=== PATIENT | female | born 1995 | race Caucasian/White ===

== ENCOUNTER 2016-12-25 20:57 | Emergency (ER) | payer BC ==
[~2016-12-25] VITALS: Ht 162.6 cm; Wt 66.4 kg
[~2016-12-25 20:57] MED LIST: BCPILLS PO; EPP3/2 IM
[2016-12-25 21:00] VITALS: Ht 162.6 cm; Wt 66.4 kg
[2016-12-25] MEDS ORDERED: FAMOTIDINE 20MG/102 ML D5W IV STA (21:07)
[2016-12-25] MEDS ORDERED: METHYLPREDNISOLONE 125 MG VIAL IV STA (21:07)
[2016-12-25] MEDS ORDERED: SODIUM CHLORIDE 0.9% 1000ML 1,000 ML IV STA (21:07)
[2016-12-25] MEDS ORDERED: EPINEPHRINE ADULT AUTO-INJECT 0.3 MG SYR ONE (21:07)
[2016-12-25] MEDS ORDERED: DiphenhydrAMINE HCL 50 MG/ML VIAL IV STA (21:07)
[2016-12-25] MEDS ORDERED: EpINEphrine INJ 1MG/ML AMP 1 MG/ML AMP IM STA (21:13)
[2016-12-25 21:28] VITALS: O2SAT 98
[2016-12-26] MEDS ORDERED: PRED50TA PO (00:44)
[2016-12-26 00:52] VITALS: BP 131/71; PULSE 66; TEMP 37; O2SAT 99
--- NOTE | 2016-12-26 03:09 | EMERGENCY ROOM VISIT NOTE ---
History Report prepared by Anastasiaibanju: Nura Hylton Under the Supervision of: Dr. Tim Rajput M.D. 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 She also complains of chest tightness, swollen eyes and lips, and itchy feet. The patient notes that these symptoms started recently and she ate about an hour ago. She notes that the last time she had a reaction similar to this was 7 years ago. The patient is prescribed an EpiPen, but has never used one before so she presented to the ED for the shot. She denies throat swelling, LOC , headache, fevers, chills, diaphoresis, visual changes, neck pain, nausea, vomiting, back pain, melena, hematochezia, urinary symptoms, numbness, weakness , lymphadenopathy, rash, or other complaints. 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 A total of ten systems were reviewed and were otherwise negative. Past Medical & Surgical Medical Problems: (1) Influenza A (2) Knee pain (3) No Known Active Medical Problems Family History No pertinent family history Social History Smoking Status: Never Smoker Marital Status: single Housing Status: lives with roommate Occupation Status: student Current/Historical Medications Scheduled Control Pills ( Control Pills), 1 TAB PO DAILY Prednisone (Prednisone), 50 MG PO DAILY Scheduled PRN Epinephrine (Epipen), 0.3 MG IM UD PRN for ALLERGIC REACTION Allergies Uncoded Allergies: TREE NUTS (Allergy, Severe, ANAPHYLAXIS, 01/02/16) Physical Exam Vital Signs Date Time Temp Pulse Resp B/P Pulse Ox O2 Delivery O2 Flow Rate FiO2 12/26/16 00:52 37.0 66 20 131/71 99 12/26/16 00:51 66 20 131/71 99 Room Air 12/25/16 23:58 68 20 133/71 99 Room Air 12/25/16 23:53 64 19 98 12/25/16 23:48 67 21 98 12/25/16 23:43 63 19 98 12/25/16 23:38 66 17 98 12/25/16 23:33 61 15 98 12/25/16 23:28 78 16 99 12/25/16 23:23 66 27 98 12/25/16 23:18 71 24 98 12/25/16 23:13 67 19 99 12/25/16 23:08 71 18 98 12/25/16 22:58 82 23 130/69 98 12/25/16 22:53 95 22 97 12/25/16 22:48 68 22 100 12/25/16 22:43 79 17 99 12/25/16 22:38 70 20 99 12/25/16 22:33 84 16 97 12/25/16 22:29 70 14 123/73 99 Room Air 12/25/16 22:28 70 14 99 12/25/16 22:23 72 22 99 12/25/16 22:18 73 18 98 12/25/16 22:13 69 17 100 12/25/16 22:08 69 19 100 12/25/16 22:03 68 19 99 12/25/16 21:58 37.0 71 20 139/77 99 Room Air 12/25/16 21:57 71 20 98 12/25/16 21:52 72 19 100 12/25/16 21:47 71 21 98 12/25/16 21:42 74 16 98 12/25/16 21:37 83 19 98 12/25/16 21:32 80 16 98 12/25/16 21:30 37.0 77 20 147/87 99 Room Air 12/25/16 21:30 147/87 12/25/16 21:28 98 Room Air 12/25/16 21:27 79 16 97 12/25/16 21:26 98 Room Air 12/25/16 21:22 76 16 99 12/25/16 21:17 78 18 98 12/25/16 21:17 97 Room Air 12/25/16 21:00 37.0 108 20 152/76 97 Room Air Physical Exam GENERAL: Awake, alert, well-appearing, in no distress HENT: Facial erythema and edema. Hives on face, chest, and upper extremities. EYES: Normal conjunctiva. Sclera non-icteric. NECK: Supple. No nuchal rigidity. FROM. No JVD. RESPIRATORY: Clear to auscultation. CARDIAC: Borderline tachycardic, normal rhythm. Extremities warm and well perfused. Pulses equal. ABDOMEN: Soft, non-distended. No tenderness to palpation. No rebound or guarding. No masses. RECTAL: Deferred. MUSCULOSKELETAL: Chest examination reveals no tenderness. The back is symmetrical on inspection without obvious abnormality. There is no CVA tenderness to palpation. No joint edema. LOWER EXTREMITIES: Calves are equal size bilaterally and non-tender. No edema. No discoloration. NEURO: Normal sensorium. No sensory or motor deficits noted. SKIN: No rash or jaundice noted. Medical Decision & Procedures Medications Administered Medications (Trade) Dose Ordered Sig/Kendall Route Start Time Stop Time Status Last Admin Dose Admin Sodium Chloride (Nss 1000ml) 1,000 ml @ 999 mls/hr Q1H1M STAT IV 12/25/16 21:07 12/25/16 22:07 DC 12/25/16 21:21 999 MLS/HR Methylprednisolone Sodium Succinate (Solu-Medrol IV) 125 mg NOW STAT IV 12/25/16 21:07 12/25/16 21:08 DC 12/25/16 21:20 125 MG Diphenhydramine HCl (Benadryl Inj) 50 mg NOW STAT IV 12/25/16 21:07 12/25/16 21:08 DC 12/25/16 21:20 50 MG Famotidine (Pepcid 20mg/100 ml) 20 mg ONE STAT IV 12/25/16 21:07 12/25/16 21:08 DC 12/25/16 21:21 20 MG Epinephrine HCl (EpINEphrine INJ 1MG/ML AMP/VIAL) 0.3 mg NOW STAT IM 12/25/16 21:13 12/25/16 21:14 DC 12/25/16 21:23 0.3 MG Prednisone (PredniSONE TAB) 60 mg NOW STAT PO 12/25/16 23:15 12/25/16 23:16 DC 12/25/16 23:28 60 MG ED Course 2104: The patient was evaluated in room C11. A complete history and physical exam was performed. 2106: Ordered Epipen 0.3 mg .ROUTE, Famotidine 20 mg IV, Benadryl Inj 0 mg IV, Solu-Medrol IV 125 mg IV, NSS 1000 ml @ 999 mls/hr IV. 2112: Ordered Epinephrine 0.3 mg IM. 2133: At this time, I reevaluated the patient and she feels and looks better. 5: Ordered Prednisone 60 mg PO. 5: I reevaluated the patient. Discussed results and discharge instructions: She verbalized understanding and agreement. The patient is ready for discharge. Medical Decision Triage Nursing notes reviewed and agree them. The patient's history was concerning for possible allergic reaction. Differential diagnosis: Etiologies such as allergic reaction, anaphylaxis, urticaria, White-Mehul syndrome, toxic epidermal necrolysis, erythema multiforme, cellulitis, as well as others were entertained. Physical examination: As above. ER treatment provided: Continuous cardiac monitoring Benadryl 50 mg IV Pepcid 20 mg IV Solu-Medrol 125 mg IV On reassessment the patient felt significantly better Prednisone 60mg PO On reassessment the patient felt even better. Diagnostic interpretation by me: Cardiac monitoring: The patient was placed on continuous cardiac monitoring and observed. It revealed a normal sinus rhythm without ectopy or evidence of dysrhythmia. It appears the patient had an allergic reaction. The above treatment did well to reverse the symptoms. After prolonged monitoring and frequent reassessments the patient did very well and symptoms resolved. Patient was counseled to avoid all nuts. She will need close outpatient follow-up. She has an EpiPen at home. By the evaluation outlined above emergent etiologies such as airway compromise, White-Mehul syndrome, toxic epidermal necrolysis, erythema multiforme, cellulitis, as well as others were deemed relatively unlikely. The patient was informed about the findings as listed above. All questions were answered and she was pleased with the treatment. Return instructions were outlined and the patient was discharged in stable condition. Outpatient prescription management: prednisone Referral: The patient was referred back to her primary care physician for follow-up in 2- 3 days for a recheck of the current condition. The chart was completed utilizing [employer] Speech voice recognition software. Grammatical errors, random word insertions, pronoun errors, and incomplete sentences are an occasional side effect of this system due to software limitations, ambient noise, and hardware issues. Any formal questions or concerns about the content, text, or information contained within the body of this dictation should be directly addressed to the physician for clarification. Impression Primary Impression: Allergic reaction Scribe Attestation The scribe's documentation has been prepared under my direction and personally reviewed by me in its entirety. I confirm that the note above accurately reflects all work, treatment, procedures, and medical decision making performed by me. Departure Information Dispostion Home / Self-Care Prescriptions Prednisone (Prednisone) 50 Mg Tab 50 MG PO DAILY, #3 TAB Prov: Tim Rajput MD 12/26/16 Referrals No Doctor, Assigned (PCP) Forms HOME CARE DOCUMENTATION FORM, IMPORTANT VISIT INFORMATION Patient Instructions My [facility] Additional Instructions ALLERGIC REACTION INSTRUCTIONS: DO NOT drive, drink alcohol, operate machinery, or perform dangerous activities today. You were given medications in the ER that can affect your ability to safely function or operate a vehicle. Avoid all nuts. (Previously prescribed) Epi-Pen: Use one injection as instructed for severe allergic reactions associated with shortness of breath, difficulty breathing, or throat or tongue swelling. If you use this injection call 911 or proceed immediately to the nearest Emergency Room. (New prescriptions) Prednisone 50mg: Once daily until the prescription is finished. It is best to take this earlier in the day as some patients note occasional difficulty falling asleep when taken in the late evening. Diphenhydramine(Benadryl) 25mg: use 25 to 50 mg every six hours for swelling, itching, or hives. This medication is sedating and will cause drowsiness. Avoid alcohol, operating machinery or dangerous equipment, working on ladders or roofs, DRIVING, or situations where being under the influence may be dangerous. Zantac 75: Take two pills twice a day along with Benadryl as needed for swelling , itching, or hives. Most people know this for its affect on the stomach, but it also acts similar to, but less potent than Benadryl for allergic reactions. Both the Benadryl and the Zantac are available [id number]. Continue current medications. Return to the emergency department for worsening of your rash, swelling of your face, lips, tongue, or throat, difficulty breathing, vomiting, or as needed. Follow-up with your primary care physician in 2 to 3 days for a recheck of your current condition. Problem Qualifiers Primary Impression: Allergic reaction Encounter type: initial encounter Qualified Codes: T78.40XA - Allergy, unspecified, initial encounter
== END 2016-12-26 00:53 | disposition home or self-care (01) ==
LOC: C.EDB 20:58 → C.EDC 12-26 00:53
DX: T78.40XA Allergy, unspecified, initial encounter (principal); R07.89 Other chest pain; L29.9 Pruritus, unspecified; R60.0 Localized edema; L50.0 Allergic urticaria; X58.XXXA Exposure to other specified factors, initial encounter; Y93.89 Activity, other specified; Y92.89 Other specified places as the place of occurrence of the external cause; Y99.8 Other external cause status